=== PATIENT | male | born 1940 ===

== ENCOUNTER → 2024-03-25 | Outpatient (CLI) | payer MEDICARE ==
--- NOTE | 2024-03-25 19:43 | CA ---
Transthoracic Echo Report Name: Adriano Quevedo Age: 84 Gender: M : 1940 Exam Date: 03/25/2024 15:24 Exam Location: [facility] Ht (in): 65 Wt (lb): 170 Ordering Physician: Jacqui Suarez MD Attending/Referring Phys: Jacqui Suarez MD [employer] Bessie Major RDCS Procedure CPT: Indications: R01.1 Murmur Cardiac Hx: Technical Quality: Fair Contrast 1: Total Dose (mL): Contrast 2: Total Dose (mL): MEASUREMENTS (Male / Female) Normal Values 2D ECHO LV Diastolic Diameter PLAX 4.6 cm 4.2 - 5.9 / 3.9 - 5.3 cm LV Systolic Diameter PLAX 3.1 cm IVS Diastolic Thickness 1.2 cm 0.6 - 1.0 / 0.6 - 0.9 cm LVPW Diastolic Thickness 1.3 cm 0.6 - 1.0 / 0.6 - 0.9 cm LV Relative Wall Thickness 0.5 RV Internal Dim ED PLAX 1.9 cm Aortic Root Diameter 4.1 cm LA Systolic Diameter LX 3.7 cm 3.0 - 4.0 / 2.7 - 3.8 cm LV Diastolic Volume MOD BP 57.8 cm??? 67 - 155 / 56 - 104 cm??? LV Systolic Volume MOD BP 32.6 cm??? 22 - 58 / 19 - 49 cm??? LV Ejection Fraction MOD BP 43.6 % >= 55 % LV Cardiac Index MOD BP 1087.6 cm???/min???m??? LV Diastolic Volume MOD 4C 79.3 cm??? LV Systolic Volume MOD 4C 32.6 cm??? LV Ejection Fraction MOD 4C 58.9 % LV Cardiac Index MOD 4C 2015.5 cm???/min???m??? LV Diastolic Length 4C 7.8 cm LV Systolic Length 4C 6.5 cm LV Diastolic Volume MOD 2C 34.2 cm??? LV Systolic Volume MOD 2C 16.5 cm??? LV Ejection Fraction MOD 2C 51.8 % LV Cardiac Index MOD 2C 763.5 cm???/min???m??? LV Diastolic Length 2C 6.3 cm LV Systolic Length 2C 3.2 cm M-MODE Aortic Root Diameter MM 3.9 cm LA Systolic Diameter MM 3.5 cm LA Ao Ratio MM 0.9 AV Cusp Separation MM 1.9 cm DOPPLER AV Peak Velocity 177.7 cm/s AV Peak Gradient 12.6 mmHg AV Mean Velocity 133.7 cm/s AV Mean Gradient 7.7 mmHg AV Velocity Time Integral 38.2 cm AI Peak Velocity 342.5 cm/s AI Peak Gradient 46.9 mmHg AI Pressure Half Time 506.8 ms LVOT Peak Velocity 122.5 cm/s LVOT Peak Gradient 6.0 mmHg LVOT Velocity Time Integral 31.5 cm Mitral E Point Velocity 98.1 cm/s Mitral A Point Velocity 131.0 cm/s Mitral E to A Ratio 0.7 MV Deceleration Time 361.2 ms MV E' Velocity 6.5 cm/s Mitral E to MV E' Ratio 15.0 FINDINGS Left Ventricle Left ventricular ejection fraction is estimated at 55-60 %. Mildly increased septal wall thickness. Normal left ventricular systolic function with no obvious regional wall motion abnormalities. Left ventricular cavity size normal. Right Ventricle Mild right ventricular dilatation. Unable to estimate the right ventricular systolic pressure. Right Atrium Normal right atrial size. Left Atrium Normal left atrial size. Mitral Valve Structurally normal mitral valve. Trace mitral regurgitation. No mitral stenosis. Aortic Valve Trileaflet aortic valve. Focal thickening of the aortic valve cusps. Moderate aortic regurgitation. Tricuspid Valve Structurally normal tricuspid valve. Trace tricuspid regurgitation. Pulmonic Valve Structurally normal pulmonic valve. Trace pulmonic regurgitation. No pulmonic stenosis. Pericardium No pericardial or pleural effusion. Aorta Mild aortic dilatation at the level of the sinuses of valsalva (root). Mildly dilated proximal ascending aorta (tube). CONCLUSIONS Diagnosis: Cardiac murmur Mild LVH with preserved systolic function Mild RV enlargement Moderate aortic regurgitation Mildly dilated aorta Previewed by: Dr. Baldev Mojica MD (Electronically Signed) Final Date: 25 March 2024 19:43
== END | disposition home or self-care (01) ==
LOC: RADECHMAIN 15:05
PROVIDERS: ATTEND Family Medicine
DX: R01.1 Cardiac murmur, unspecified
CPT/HCPCS: 93306

== ENCOUNTER → 2024-04-23 | Outpatient (CLI) | payer MEDICARE ==
[2024-04-23 13:31] LABS: African American GFR (CKD) >90 (>60 ml/min/1.73 sqM); Blood Urea Nitrogen 20 mg/dL (9-20); Non-African American GFR(CKD) 80 (>60 ml/min/1.73 sqM)
--- NOTE | 2024-04-23 14:32 | CT ---
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 COMPARISON: CTA chest dated 08/15/[address] abdomen and pelvis CT 08/15/2017. TECHNIQUE: Multiple axial images are obtained through the chest, abdomen and pelvis before and after the administration Nonionic IV contrast. Exam was performed according to the department CTA protocol. FINDINGS: CTA chest: The thoracic aorta is nondilated and there is no dissection. There is no mediastinal, hilar or axilla ry adenopathy. There is no pulmonary embolus. There is no pleural effusion or pneumothorax. There are mild interstitial densities in the lung bases posteriorly consistent with mild atelectasis or interstitial scarring. There is no suspicious lung mass or nodule. There are a few scattered micro nodules. The osseous structures are intact. CTA abdomen and pelvis: The gallbladder is contracted. There is no organomegaly involving the liver, pancreas or spleen. There are no focal abnormalities wi thin the solid visceral organs of the upper abdomen. The caliber of the abdominal aorta is normal and no aneurysm or dissection. There is no retroperitone al adenopathy or hemorrhage.There is no solid renal mass or hydronephrosis. There is no renal calcifi cation. The bowel loops are normal in caliber and no dilatation or obstruction. There is no abdominal or pelv ic inflammation. As noted free intraperitoneal air or fluid. No pelvic mass or adenopathy. There is moderate prostatic hypertrophy. The osseous structures are intact . IMPRESSION: No evidence of aneurysm or dissection of the thoracic or abdominal aorta. [facility], , 04/23/2024 2:30 PM
== END | disposition home or self-care (01) ==
LOC: RADCTMAIN 12:57
PROVIDERS: ATTEND Internal Medicine Interventional Cardiology
DX: I71.21 Aneurysm of the ascending aorta, without rupture (principal)
CPT/HCPCS: 36415; 71275; 74174; 82565; 84520